=== PATIENT | female | born 1955 | race Caucasian/White ===

== ENCOUNTER → 2021-11-22 | Outpatient (CLI) | payer MEDICARE, OTHER ==
[~2021-11-22] MED LIST: ASPIRIN CHEWABL81 MG PO; BACTRIM 400-801 EACH PO; CRESTOR20 MG PO; DULCOLAX STOOL100 MG PO; FERROUS SULFAT324 MG PO; LISINOPRIL40 MG PO; MACROBID 100 M100 MG PO; OMEPRAZOLE20 MG PO; TENORMIN 50 MG50 MG PO; TRAMADOL HCL50 MG PO; ZOFRAN ODT 4 MG4 MG PO
== END ==
LOC: OR 06:27 → CT 08:00
DX: R16.0 Hepatomegaly, not elsewhere classified (principal); Z20.822 Contact with and (suspected) exposure to COVID-19
CPT/HCPCS: 36415; 77012; 85049; 85610; 85730; J2250; J3010